=== PATIENT | male | born 1945 | race Caucasian/White ===

== ENCOUNTER 2019-03-10 09:45 | Outpatient (CLI) | payer OTHER, SELFPAY | END 2019-03-10 09:46 | disposition home or self-care (01) | LOC: RAD 09:52 → RT 10:00 | PROVIDERS: PCP Emergency Medicine Emergency Medical Services; Visit Provider Specialist | DX: R06.1 Stridor (principal) | CPT/HCPCS: 94060 ==

== ENCOUNTER 2021-12-22 12:53 | Outpatient (CLI) | payer OTHER, SELFPAY ==
[2021-12-22 14:24] LABS: Add Urine Microscopic? NO; Charge for UA Resulting for Rev
[2021-12-22 14:49] LABS: Bilirubin Urine Neg (Negative); Blood Urine Neg (Negative); Glucose Urine UA Norm (Normal); Ketones Urine Negative (Negative); Leukocyte Esterase Urine Negative (Negative); Nitrate Urine Negative (Negative); Protein Urine Neg (Negative); Specific Gravity, Urine 1.005 (1.005-1.030); Urine Appearance Clear (CLEAR); Urine Color Yellow (Yellow); Urobilinogen Urine Neg (Negative); pH Urine 7 (5-7)
== END 2021-12-22 12:54 | disposition home or self-care (01) ==
LOC: LAB 12:54
PROVIDERS: PCP Emergency Medicine Emergency Medical Services; Visit Provider Chiropractor
DX: E11.9 Type 2 diabetes mellitus without complications (principal)
CPT/HCPCS: 81003